=== PATIENT | male | born 1950 | race Caucasian/White ===

== ENCOUNTER 2022-04-06 10:04 | Observation (INO) ==
--- NOTE | 2022-02-14 10:41 | PAT Medication Instructions ---
Medication Instructions Date of Service February 14, 2022 Home Medications aspirin 81 mg tablet,delayed release 81 mg PO QAM hydrochlorothiazide 25 mg tablet 25 mg PO QAM losartan 100 mg tablet 100 mg PO QAM omeprazole 20 mg capsule,delayed release 20 mg PO QAM DO NOT take the morning of surgery hydrochlorothiazide 25 mg tablet 25 mg PO QAM losartan 100 mg tablet 100 mg PO QAM Take morning of surgery With a small sip of water, OTHERWISE NOTHING TO EAT OR DRINK AFTER MIDNIGHT: aspirin 81 mg tablet,delayed release 81 mg PO QAM (unless directed otherwise by surgeon) omeprazole 20 mg capsule,delayed release 20 mg PO QAM Other Notes If you have any questions please call us at [phone] or [phone] or [phone] or [phone]
--- NOTE | 2022-02-28 10:30 | Anesthesiology Consultation ---
Date of Service February 28, 2022 Assessment & Plan (1) Encounter for pre-operative examination: - COVID screening: Per assessment on 02/28: No known COVID-19 positive contacts or current COVID-19 related symptoms. Travel screen negative. Patient vaccinated. At surgeon discretion if preop Covid testing being done. - Outpatient joint assessment: Pt currently scheduled for inpatient pathway. If surgeon requests review for outpatient joint pathway, patient is not recommended candidate for outpatient joint program from anesthesia standpoint. - Elevated isolated PTT: 34.3- reviewed with Dr. Monreal. He feels that no further evaluation regarding this needed prior to surgery from his perspective- recommends recheck AM DOS. Coags ordered for AM DOS. - Abnormal preop EKG: Unconfirmed preop EKG indicated undetermined rhythm at 111bpm. Confirmed report indicated A. fib with RVR. Per extensive review of [facility] records, hx of Supraventricular ectopic frequent PACs per 2014 satellite project site monitor after workup for DVT of unclear etiology. No A. fib at that time. Preop EKG/testing forwarded to PCP. Reviewed with patient's PCP (Dr. Jonatan Blanton)- he recommended patient proceed to ER for further evaluation. Gale at surgeon's office aware. > Pt seen at [facility] ER/admitted 02/28/22. Unremarkable Echo performed 03/01/22. Per hospital course, "Received metoprolol iv and oral in the ED. apixiban 5 mg bid was initiated. Pt converted spontaneously to NSR." Zio monitor ordered 03/02 ([facility] cardio). - Patient will establish outpatient care with cardio (appt scheduled 04/02; Alana MORAES/[facility]). Optimization note/Apixaban recommendations request written to cardio. Awaiting cardiology preop evaluation/Apixaban instructions ([facility]). Chart Review Chart Review: Patient seen in Pre Admission Testing Teaching & Discussion Pre-Anesthesia Teaching/Discussion Notes: Instructed NPO after midnight before surgery,except medications with 15 cc of water. Medication instructions provided according to the PAT guidelines. History Surgery Operation Date: 04/06/22 12:20 Proposed Procedures p Right Anterior Total Hip Arthroplasty - Raman Cole, Height/Weight Height: 5 ft 7 in Weight: 103.1 kg Allergies Allergy/AdvReac Type Severity Reaction Status Date / Time No Known Allergies Allergy Verified 03/01/22 11:52 Medications Home Medications Medication Instructions Recorded Confirmed Last Taken aspirin 81 mg tablet,delayed 81 mg PO QAM 02/07/22 03/01/22 02/20/22 release hydrochlorothiazide 25 mg tablet 25 mg PO QAM 02/07/22 03/01/22 02/20/22 losartan 100 mg tablet 100 mg PO QAM 02/07/22 03/01/22 02/21/22 06:30 omeprazole 20 mg capsule,delayed 20 mg PO QAM 02/07/22 03/01/22 02/21/22 06:30 release apixaban 5 mg tablet 5 mg PO BID 03/02/22 03/02/22 Unknown metoprolol succinate 25 mg 25 mg PO DAILY 03/02/22 03/02/22 Unknown tablet,extended release 24 hr Past Medical History Medical History A-fib New onset per 02/28/22 PAT preop EKG > seen at 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 without issue History of colonoscopy History of colonoscopy with polypectomy BENIGN History of endoscopy History of knee surgery FOR MENISCUS History of total left hip replacement Past Anesthesia History No Hx of Anesthesia Complications and No Family Hx of Anesthesia Complications History of PONV No Hx of PONV and No Hx of Motion Sickness Social History Smoking Status: Former smoker tobacco type: cigarettes Do You Dip or Chew Tobacco: No Smoking End Date: Quit 45 years ago Hx Alcohol Use: Yes Alcohol type: beer alcohol intake frequency: a few times a week Hx Substance Use: No substance use type: does not use Review of Systems Patient denies chest pain, shortness of breath, dyspnea on exertion, fever, chills, cough, wheezing, palpitations. Physical Exam Vital Signs VITALS BP 124/76 P 80 TEMP 97.7 SP02 95%RA RESP 16 PHYSICAL Full cervical extension range of motion. Full TMJ range of motion. TMD 3.5 finger breaths Mallampati Score 2 Dentition: missing sides, + cap Lungs: clear throughout to auscultation Cardiac: regular rate and rhythm with occasional extra beats, no murmurs noted Spine: normal Carotid arteries: negative bruit Extremities: no edema Lab Results Anesthesia Preop Results Results Anesthesia Widget: Glucose Level 100 mg/dl (70-99(Fasting)) H 02/28/22 PTT 34.3 Seconds (21.0-31.0) H 02/28/22 Blood Type A Negative 02/28/22 Antibody Screen NEGATIVE 02/28/22 Testing Laboratory Results 03/01/22 WBC 9.11 H/H 16.8/48.3 PLATELETS 194 SODIUM 143 POTASSIUM 4.4 CHLORIDE 109 CO2 26 BUN 23 CREATININE 1.4 GLUCOSE 99 02/28/22 BNP 306 TSH 1.75 PT 12.9 INR 1.0 Electrocardiogram Date: 02/28/22 A. fib with RVR with premature ventricular or aberrantly conducted complexes at 121 bpm. RBBB. LAFB. Bifascicular block. Chest X-Ray Date: 02/28/22 FINDINGS: Cardiomediastinal and hilar silhouettes are within normal limits. There is no pneumothorax, pleural effusion, airspace consolidation or overt pulmonary edema. Degenerative changes of the shoulders and spine. Right shoulder rotator cuff calcific tendinosis. IMPRESSION: No acute process. Echocardiogram Date: 03/01/22 Qualitative LVEF 50%. Mild RVD. Mildly enlarged right atrium/left atrium. Mild TR. COVID-19 Risk Screen Screening Information COVID-19 Screen Date: 02/28/22 Exposure 21 Days Family/Household +COVID Last 21 Days: No Exposure 10 Days Any COVID Exposure Last 10 Days: No Symptoms Last 10 Days Experienced COVID Sx Last 10 Days: No + COVID 0-90 Days COVID + in Last 0-90 Days: No
--- NOTE | 2022-04-05 13:08 | History & Physical Report ---
Date of Service April 05, 2022 Assessment & Plan (1) Degenerative joint disease of right hip: We will proceed with a right anterior total of arthroplasty. Postoperatively he will be started on Eliquis for DVT prophylaxis and kept overnight in the hospital for postop medical management. He plans to go to physical therapy with [facility] in [place] upon discharge. History of Present Illness Chief Complaint: Osteoarthritis of the right hip. Primary Care Provider: NO PCP Anupam is a pleasant 71-year-old male who had a left hip replacement done in [facility] Dr. Ortiz.He has been dealing with right hip pain.It usually gets severe in springtime.Itwas rathersevere last spring.It has been a little better over the summer.He still has some issues with his hip.Dealing with some low back pain as well.X-rays and clinical examination have been diagnostic for severe osteoarthritis of the right hip. After failing conservati ve treatment, he has elected proceed with a right anterior total hip arthroplasty. Allergies Allergy/AdvReac Type Severity Reaction Status Date / Time No Known Allergies Allergy Verified 03/05/22 10:48 Home Medications Medication Instructions Recorded Confirmed Type aspirin 81 mg tablet,delayed 81 mg PO QAM 02/07/22 03/05/22 History release hydrochlorothiazide 25 mg tablet 25 mg PO QAM 02/07/22 03/05/22 History losartan 100 mg tablet 100 mg PO QAM 02/07/22 03/05/22 History omeprazole 20 mg capsule,delayed 20 mg PO QAM 02/07/22 03/05/22 History release apixaban 5 mg tablet 5 mg PO BID 03/02/22 03/05/22 History metoprolol succinate 25 mg 25 mg PO DAILY 03/02/22 03/05/22 History tablet,extended release 24 hr Past Med/Surg History Medical History A-fib New onset per 02/28/22 PAT preop EKG > seen at [facility] and started on beta libertad/Apixaban, to f/u outpatient with cardio 04/02 Acid reflux DVT (deep venous thrombosis) LLE 2014 (unknown etiology), no issues since Fatty liver Possible History of cardiac arrhythmia Supraventricular ectopic frequent PACs per [address] monitor History of COVID-19 09/2021 Hypertension Obesity Osteoarthritis 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 Per [facility] records Surgical History History of cataract extraction 02[place] [facility] [place] [facility] without issue History of colonoscopy History of colonoscopy with polypectomy BENIGN History of endoscopy History of knee surgery FOR MENISCUS History of total left hip replacement Social History Smoking Status: Former smoker Second Hand Exposure: No; Hx Alcohol Use: Yes Alcohol type: beer Hx Substance Use: No Preferred Language: Eritrean Communication Ability: Effective Homicide Detective Required: No Beliefs That Will Affect Care: None Current Living Situation: Spouse Feels Safe at Home: Yes Assistive Devices: Glasses Review of Systems All systems reviewed & are unremarkable except as noted in HPI & below. Physical Exam On physical examination the right hip, he has decreased range of motion. He has pain with forced internal and external rotation. All of his pain is located in his groin.. Constitutional WD/WN, vitals as above Eyes PERRL, conjunctivae normal, anicteric sclerae ENMT external ear and nose normal, oropharynx normal Neck trachea midline, no thyromegaly Respiratory normal respiratory effort, lungs clear to auscultation Cardiovascular RRR, no murmur, no edema Gastrointestinal (Abdomen) normal bowel sounds, soft, nontender, no hepatosplenomegaly Skin no rashes, warm and dry Psychiatric A+Ox3, euthymic affect Results & Data Results & Data Laboratory Results . Diagnostic Findings X-rays of the right hip show advanced osteoarthritis with joint space narrowing, osteophyte formation, and [id number] articulation. PG Care Time/CCT Total # of Minutes Spent Total Time Spent with Patient: Total time spent is greater than 50% in coordination of care (as documented) at patient's floor/unit and/or counseling patient: Coding Level of Care Code None Diagnoses Degenerative joint disease of right hip M16.11
[~2022-04-06 10:04] MED LIST: ACETAMINOPHEN 500 MG TAB PO SCH; BUPIVACAINE 0.5 % 5 MG/1 ML PF 10ML VIAL ONE; FAMOTIDINE 20 MG TAB PO SCH; GABAPENTIN 300 MG CAP PO SCH; General Order Problem(s) SCH; LR 500ML BOLUS, THEN 15ML/HR IV SCH; LR 60ML/HR IV SCH; ORTHO JOINT ANESTHETIC ONE; ORTHO JOINT MIX INFIL SCH; TRANEXAMIC ACID 1,000 MG **IV Intra-op IV SCH; TRANEXAMIC ACID 1,000 MG **IV Pre-op IV SCH; ceFAZolin 2000MG 2,000 MG/15 ML SYR IV SCH; dexAMETHasone 4 MG TAB PO SCH
[2022-04-06 10:45] LABS: Partial Thromboplastin Ratio 1.3; Partial Thromboplastin Time 34.9 Seconds (21.0-31.0); Prothrombin Time 10.8 Seconds (9.0-12.0)
--- NOTE | 2022-04-06 10:58 | History & Physical Bridge Note ---
Date of Service April 06, 2022 History & Physical Bridge Note I have examined the patient, reviewed the History & Physical and in the interval since the performance of the History & Physical I have noted the following changes of clinical significance: no changes noted
[2022-04-06] MEDS ORDERED: ePHEDrine sulfate 50 MG/ML AMP IV PRN (11:15)
[2022-04-06] MEDS ORDERED: ATROPINE SULFATE 0.1 MG/ML 10ML SYR IV PRN (11:15)
[2022-04-06] MEDS ORDERED: KETOROLAC 30 MG/ML VIAL IV PRN (11:15)
[2022-04-06] MEDS ORDERED: HYDROmorphone INJ 1 MG/ML SYRINGE IV PRN (11:15)
[2022-04-06] MEDS ORDERED: ONDANSETRON INJ 2 MG/ML 2 ML VIAL IV PRN ×2 (11:15→16:39)
[2022-04-06] MEDS ORDERED: LIDOCAINE 2% 20 MG/ML 5 ML SYR IV ONE (11:41)
[2022-04-06] MEDS ORDERED: PROPOFOL IV EMULSION 10 MG/ML 20 ML VIAL IV ONE ×3 (11:41→13:18)
[2022-04-06] MEDS ORDERED: MIDAZOLAM HCL 1 MG/ML 2ML VIAL ONE (11:42)
[2022-04-06] MEDS ORDERED: fentaNYL citrate 100 MCG/2 ML VIAL ONE (11:42)
[2022-04-06] MEDS ORDERED: ePHEDrine sulfate 50 MG/ML AMP ONE (12:19)
[2022-04-06] MEDS ORDERED: PHENYLEPHRINE HCL 10 MG/ML VIAL ONE (12:56)
--- NOTE | 2022-04-06 13:29 | Operative Report ---
PG Post Operative Report Pre & Post Diagnosis Operation Date: 04/06/22 12:50 Pre-Op Diagnosis: DJD Right Hip Post-Op Diagnosis: DJD Right Hip I identified the patient and participated in the time-out.: Yes Procedure Operation Date: 04/06/22 12:50 Actual Procedures p Right Anterior Total Hip Arthroplasty(Right) - Raman Cole DO Surgeon Raman Cole DO Service Learning Coordinator Raman Duran PA-C Estimated Blood Loss 250 Findings Consistent with Post-Op Diagnosis Specimens Right femoral head Description of Procedure Implants used I used a ZimmerBiomet total hip arthroplasty system with a size 2 high offset Avenir Complete stem, a 54 mm G7 cup with a 25mm screw, an E1 polyethylene liner, a 40 mm ceramic head with a -3.5 neck. Anupam arrived at the hospital for the above procedure. He was seen in the preoperative holding area and the operative extremity was identified and signed. He was given a spinal anesthetic, a preoperative antibiotic, and TXA. He was then taken back to the operating room and laid on the table in the supine position. He was given basic sedation. The operative leg was secured to a Puristst leg positioner. The hip was then prepped and draped in sterile fashion. A timeout was done and the patient and the operative extremity was properly identified. An anterior approach was used. Dissection was taken down through the fascia and the tensor muscle belly was retracted laterally and the rectus was retracted medially. The circumflex vessels were identified and ligated. The capsule was then incised and tagged for later repair. The femoral neck was then cut and the femoral head was removed. The acetabulum was exposed. Time was spent doing a complete circumferential labral release. Sequential reaming of the acetabulum up to a size 53 reamer was done. Final reamings were done under fluoroscopy to ensure appropriate version. A Biomet 54 mm G7 cup was then impacted into place. A single 25 mm screw was placed. The E1 polyethylene liner was then snapped into place. Surrounding soft tissues were then injected with 100 cc of an orthopedic pain control cocktail. The proximal femur was then exposed. Sequential broaching up to a size 2 broach was done. Off that broach a size 40 head with a -3.5 neck was trialed. The hip was reduced and fluoroscopic images showed anatomic alignment of the implants in acceptable length. The broach was removed. The final size 2 standard offset Avenir Complete stem was then impacted into place. A ceramic 40 mm head with a -3.5 neck was then impacted onto the stem and the hip was reduced. Final fluoroscopic images showed anatomic alignment of the hip. The capsule was then closed with #1 Vicryl suture. A dilute betadyne lavage was then done for 3 minutes. The joint was then irrigated with normal saline solution. The fascia was closed with #1 PDS suture. Skin was closed with 2-0 Vicryl, scott, and a Silverlon dressing. He was then transferred to a hospital bed and taken to the post anesthesia care unit in stable condition. He tolerated the procedure well. Raman Duran PA-C, was present for the entire procedure. He was critical for patient positioning, prepping, draping, retraction exposure, wound closure and application of sterile dressing. I attest to the content of the Intraoperative Record and any orders documented therein. Any exceptions are noted below.
--- NOTE | 2022-04-06 14:04 | Fluoroscopy Report ---
INTRAOPERATIVE RADIOGRAPH CLINICAL HISTORY: Right hip arthroplasty. Fluoroscopy time: 18 seconds. FINDINGS: A single spot fluoroscopic view of the right hip is presented. A bipolar right hip arthropl asty is in near anatomic alignment. A single cortical lag screw is seen transfixing the acetabular cu p. There is no evidence of acute fracture on this fluoroscopic image. Surgical clips project over the scrotum. IMPRESSION: Intraoperative image from a right hip arthroplasty procedure as above. Electronically signed by: John Bustamante M.D. 04/06/2022 2:03 PM
--- NOTE | 2022-04-06 14:17 | XRay Report ---
XR hip 1V RT w pelvis CLINICAL HISTORY: Postoperative evaluation. COMPARISON: Right hip radiographs February 27, 2022. FINDINGS: Alignment of the total right hip arthroplasty is anatomic. There is no periprosthetic frac ture or unexpected radiopaque foreign body. There are skin scott. Left hip arthroplasty is noted. T here are scrotal surgical clips. IMPRESSION: Expected findings following total right hip arthroplasty. ACT 112: Negative or not required by law. Electronically signed by: Lenny Diana M.D. 04/06/2022 2:16 PM
--- NOTE | 2022-04-06 14:28 | Anesthesiology Progress Note ---
Date of Service April 06, 2022 Anesthesia Post Procedure Vital Signs Vital Signs: Temp Pulse Resp BP Pulse Ox O2 Del Method 04/06/22 14:10 57 L 16 118/76 95 Room Air 04/06/22 14:00 61 16 120/78 96 Room Air 04/06/22 13:54 36.0 C L 62 16 96/73 L 98 Room Air 04/06/22 10:40 36.7 C 64 20 131/89 96 Room Air Pain Intensity Right Hip: Pain Intensity: 0 Transfer of Care Handoff Completed per policy Notes Mental Status: alert / awake / arousable Patient Amnestic to Procedure: Yes Nausea / Vomiting: adequately controlled Pain: adequately controlled Airway Patency, RR, SpO2: stable & adequate BP & HR: stable & adequate Hydration State: stable & adequate Neuraxial Anesthesia: was administered and sensory block is resolving Anesthetic Complications: no major complications apparent
[2022-04-06] MEDS ORDERED: oxyCODONE HCL IR 5 MG TAB (IMMEDIATE RELEASE) PO PRN (16:39)
[2022-04-06] MEDS ORDERED: MAGNESIUM HYDROXIDE SUSP 30 ML UDC PO PRN (16:39)
[2022-04-06] MEDS ORDERED: NALOXONE HCL 0.4 MG/1 ML VIAL/CARP IV PRN (16:39)
[2022-04-06] MEDS ORDERED: bisacodyL 10 MG SUPP PR PRN (16:39)
[2022-04-06] MEDS ORDERED: HYDROmorphone INJ 0.5 MG/0.5 ML SYR IV PRN (16:39)
[2022-04-06] MEDS ORDERED: METOCLOPRAMIDE HCL INJ 5 MG/ML 2 ML VIAL IV PRN (16:39)
[2022-04-06] MEDS: SODIUM CHLORIDE 0.9% 1000ML 1,000 ML IV SCH (16:45)
[2022-04-06] MEDS: ACETAMINOPHEN 500 MG TAB PO SCH ×2 (17:26→22:08)
[2022-04-06] MEDS: KETOROLAC TROMETHAMINE 15 MG/ML VIAL IV SCH ×2 (17:26→22:07)
[2022-04-06] MEDS: ceFAZolin 2000MG 2,000 MG/15 ML SYR IV SCH (19:59)
[2022-04-06] MEDS: APIXABAN 5 MG TABLET PO SCH (20:00)
[2022-04-06] MEDS: DOCUSATE SODIUM 100 MG CAP PO SCH (20:01)
[2022-04-06] MEDS ORDERED: SENNA 8.6 MG TAB PO SCH (21:00)
[2022-04-07] MEDS: SODIUM CHLORIDE 0.9% 1000ML 1,000 ML IV SCH (02:25)
[2022-04-07] MEDS: ceFAZolin 2000MG 2,000 MG/15 ML SYR IV SCH (04:42)
[2022-04-07] MEDS: KETOROLAC TROMETHAMINE 15 MG/ML VIAL IV SCH ×2 (04:43→09:51)
[2022-04-07] MEDS: ACETAMINOPHEN 500 MG TAB PO SCH (06:01)
[2022-04-07] MEDS ORDERED: dexAMETHasone 4 MG TAB PO SCH (08:00)
--- NOTE | 2022-04-07 08:00 | Orthopedic Progress Note ---
Date of Service April 07, 2022 Assessment & Plan (1) Status post right hip replacement: Overall he is doing fairly well. He is not having much pain in the right hip. He will be seen by physical therapy today for ambulation and range of motion exercises. He is on Eliquis for DVT prophylaxis. He can be discharged home later today. He will follow-up with orthopedics in 2 weeks. Catalino Bo was seen and examined at bedside this morning. Overall is doing very well. Is not having too much pain in the right hip. He has been up and ambulating to the bathroom. He has no complaints.. Review of Systems All systems reviewed & are unremarkable except as noted in HPI & below. Physical Exam On physical examination of the right hip, the dressing is clean and dry. His leg lengths are equal. He is active dorsiflexion and plantarflexion of the right ankle.. Results & Data Results & Data Laboratory Results . Diagnostic Findings Postoperative x-rays of the right hip show the prosthesis to be in anatomic alignment without any evidence of fracture, desiccation, or loosening.. PG Care Time/CCT Total # of Minutes Spent Total Time Spent with Patient: Total time spent is greater than 50% in coordination of care (as documented) at patient's floor/unit and/or counseling patient: Coding Level of Care Code 41642 Post Operative Follow-Up Diagnoses Status post right hip replacement Z96.641
--- NOTE | 2022-04-07 08:01 | Discharge Summary ---
Date of Service April 07, 2022 Admission HPI (Per Admitting) Anupam is a pleasant 71-year-old male who had a left hip replacement done in [facility] Dr. Otriz.He has been dealing with right hip pain.It usually gets severe in springtime.Itwas rathersevere last spring.It has been a little better over the summer.He still has some issues with his hip.Dealing with some low back pain as well.X-rays and clinical examination have been diagnostic for severe osteoarthritis of the right hip. After failing conservative treatment, he has elected proceed with a right anterior total hip arthroplasty. Admission Exam (Per Admitting) On physical examination the right hip, he has decreased range of motion. He has pain with forced internal and external rotation. All of his pain is located in his groin.. Principal Diagnosis Same as "Discharge Diagnosis" noted below under Discharge Instructions. Discharge Exam On physical examination of the right hip, the dressing is clean and dry. His leg lengths are equal. He is active dorsiflexion and plantarflexion of the right ankle.. Discharge Data Procedures Performed Operation Date: 04/06/22 12:50 Actual Procedures p Right Anterior Total Hip Arthroplasty(Right) - Raman Cole DO Ordered Studies 04/06/22 12:50 FL hip RT 1V Routine Hospital Course (1) Status post right hip replacement: On April 06, 2022 Anupam arrived at [facility] and underwent a right hip replacement without complication. He had a spinal anesthetic. Po stoperatively, he was started on Eliquis for DVT prophylaxis and transferred to the general orthopedic floors. His hospital course was uneventful. On postop day #1, his vital signs were stable and his pain was well controlled. He was able to participate well with physical therapy doing ambulation and range of motion exercises. He was then discharged home. He will follow-up with orthopedics in 2 weeks. PG Care Time/CCT Total # of Minutes Spent Total Time Spent with Patient: Total time spent is greater than 50% in coordination of care (as documented) at patient's floor/unit and/or counseling patient: Discharge Plan Discharge Items Patient Disposition: Home - Home Health Services Reason For Visit: DJD Right Hip Discharge Diagnosis: Right hip replacement Activity: Per Instructions section Non-emergency contact: Surgeon Call non-emergency contact if: your wound has increased redness and your wound has increased drainage Follow-up/Referrals: PCP,NO [Primary Care Provider] - Diet: Regular Addtl Attending Provider Instructions: Activity and Therapy Recommendations: * If you are using [facility] then therapy will be provided at your home until they feel you have accomplished all of your goals. * If you are using [facility] then Physical Therapy will be provided until they feel you are ready to start Outpatient Physical Therapy. * If you are not using home therapy then Outpatient Physical Therapy should start about 3-5 days from your day of surgery. Therapy will last about 6-10 weeks * You were shown a series of exercises in the hospital. Do these exercises three times each day including the exercises you were shown in physical therapy. * Get up and walk several times each day.~ For the first four weeks, try not to stand or walk for more than one hour at a time. If you do stand or walk for more than one hour, you will not hurt anything, but your leg will likely swell.~~ * As you feel comfortable, you may change from the walker or crutches to a cane and~then to independent walking. Medications: * Narcotic You will likely be sent home from the hospital with a prescription for the narcotic pain medication that worked best throughout your stay. * Aspirin Most patients will be required to take Aspirin 81mg twice a day for 6 weeks after surgery. This is obtained [id number] and a prescription is not necessary. * Other medications may be prescribed for specific circumstances. If you have any questions, please call the office at . * Resume previous home medications unless otherwise instructed TEDs/Elastic Stockings: The white elastic stockings help limit swelling and prevent blood clots from forming in your legs. The more you wear them, the more they work. Wear them for six weeks. Dressing Care: Leave the Silverlon dressing in place for 7 days. After 7 days you may remove the dressing. If the incision is not draining then you may leave the scott open to air. If there is a little bit of drainage or if the scott are getting stuck on your clothing then cover the incision with a dry dressing. The scott will be removed at your 2 week follow-up appointment. Showering: You may shower with the Silverlon dressing in place. Do not let the shower spray hit the dressing directly. Pat the Silverlon dressing dry. If the dressing becomes wet underneath, then simply remove the dressing. Keep the incision dry until you are 7 days out from the day of surgery. After 7 days you may remove the Silverlon dressing and shower with the scott exposed. Let soapy water run over the scott and pat them dry. Do not scrub or soak the incision. Things To Watch For: * Drainage from the incision site that occurs more than one week after your surgery. * Increased redness at the incision site. * Fever above 102 degrees Fahrenheit. * Unusual chest pain or shortness of breath. * Call [facility] at with any of the above problems Follow-Up Visit: Follow-up with Dr. Cole's PA (Raman Duran) 2-3 weeks after your day of surgery. He will remove your scott and answer any questions. If you have any additional questions or concerns, Dr Cole is usually in the office at the same time and will be available An appointment was probably scheduled when you signed-up for surgery in the office. If you have any questions call Office Instructions: More detailed instructions as well as Frequently Asked Questions were provided in a folder by our office when you signed-up for surgery. Please review these instructions when you get home. If you have any further questions or concerns, please feel free to call the office at [phone] Pending Studies at Discharge: No Stand-Alone Forms: My [facility] Medications and DC Order Prescriptions: New oxycodone-acetaminophen 5-325 mg tablet 1 tab PO Q6H PRN (Reason: pain) Qty: 30 0RF Continued omeprazole 20 mg Capsule,Delayed Release(Dr/Ec) 20 mg PO QAM hydrochlorothiazide 25 mg Tablet 25 mg PO QAM losartan 100 mg Tablet 100 mg PO QAM metoprolol succinate 25 mg Tablet Extended Release 24 Hr 25 mg PO DAILY apixaban 5 mg Tablet 5 mg PO BID Discharge Orders: Discharge Order (Routine); Ordered 04/07/22 Ordered By: Raman Cole Admission Data Admit Date/Time: 04/06/22 13:54 Attending Provider: Raman Cole Admit Provider: Raman Cole Primary Care Provider: PCP,NO
[2022-04-07] MEDS ORDERED: LOSARTAN POTASSIUM 50 MG TAB PO SCH (09:00)
[2022-04-07] MEDS ORDERED: METOPROLOL SUCC 25MG EXT REL TAB PO SCH (09:00)
[2022-04-07] MEDS ORDERED: MULTIVITAMIN TAB PO SCH (09:00)
[2022-04-07] MEDS ORDERED: hydroCHLOROthiazide 25 MG TAB PO SCH (09:00)
[2022-04-07] MEDS: DOCUSATE SODIUM 100 MG CAP PO SCH (09:50)
[2022-04-07] MEDS: APIXABAN 5 MG TABLET PO SCH (09:50)
== END 2022-04-07 11:48 | disposition home health service (06) ==
LOC: 3E 10:04 → ASU 10:04